=== PATIENT | female | born 1965 | race Caucasian/White ===

== ENCOUNTER 2019-03-17 10:53 | Day surgery (SDC) | payer OTHER ==
[~2019-03-17] VITALS: Ht 157.5 cm; Wt 79.6 kg
[~2019-03-17 10:53] MED LIST: ESTROVEN; LOSARTAN; [UNRECOGNIZED DRUG - OTHER]
[2019-03-17 11:48] VITALS: Ht 157.5 cm; Wt 79.6 kg
[2019-03-17 11:51] VITALS: BP 134/61; PULSE 56; RESP 20
[2019-03-17] MEDS ORDERED: FENTAnyl 50 MCG/ML VIAL ONE (13:31)
[2019-03-17] MEDS ORDERED: MIDAZOLAM 1 MG/ML 2 ML INJ ONE ×2 (13:31)
[2019-03-17 13:40] VITALS: BP 128/67; PULSE 54; RESP 18
== END 2019-03-17 14:22 | disposition home or self-care (01) ==
LOC: GIL 10:53
PROVIDERS: ATTEND Internal Medicine Gastroenterology
DX: Z12.11 Encounter for screening for malignant neoplasm of colon (principal); K64.4 Residual hemorrhoidal skin tags; I10 Essential (primary) hypertension
CPT/HCPCS: 45378; J2250; J3010; Z7610